=== PATIENT | male | born 1975 | race Caucasian/White ===

== ENCOUNTER 2017-01-31 11:26 | Emergency (ER) | payer OTHER ==
[~2017-01-31] VITALS: Wt 95.3 kg
[~2017-01-31 11:26] MED LIST: ACULAR 3ML 3 ML5 ML OPH; AMOXICILLIN500 M2 PO; AMOXICILLIN500 MG PO; BACTRIM DS 8001 TA1 PO; CEPHALEXIN500 M1 PO; CIPRO500 MG PO; CYCLOBENZAPRINE10 MG PO; DARVOCET N 1001 TAB PO; DEPAKOTE125 MG PO; DEPAKOTE250 MG PO; DOXYCYCLINE MO100 MG PO; FLEXERIL5 MG PO; FLOMAX0.4 MG PO; IBU PO; IBU800 MG PO; KEFLEX500 MG PO; LOMOTIL 0.025 M1 TA1 PO; MEDROL DOSEPAK4 MG PO; MELOXICAM15 MG PO; METHYLPRED-DP4 MG PO; MOTRIN800 MG PO; NO MED LIST; PERCOCET 325 MG1 TA2 PO; PHENERGAN W/DM120 ML PO; PREDNISONE10 MG PO; PREDNISONE20 M1 PO; PRILOSEC20 M1 PO; PROTONIX40 MG PO; PROZAC20 MG PO; PROZAC40 MG PO; TOBRADEX 0.1%-0.5 ML OPH; TOBREX OPHTH S2.5 ML OPH; TOPAMAX100 MG PO; TOPAMAX200 MG PO; TORADOL10 MG PO; TRAMADOL HCL50 MG PO; VIBRA-TABS100 MG PO; VICODIN 500 MG-1 TAB PO; VICODIN ES 7501 TAB PO; VITAMIN D32000 UNIT PO; VOLTAREN50 M1 PO; ZANTAC150 MG PO; ZITHROMAX Z PA250 MG PO; ZOFRAN ODT4 MG SL; ZYRTEC10 MG PO
[2017-01-31 12:42] LABS: BASO % 0.4 % (0.0-1.0); EOS # 0.1 10*3/uL (0.0-0.4); HEMATOCRIT 44.3 % (42.0-52.0); HEMOGLOBIN 15.9 g/dl (14.0-18.0); LYMPH # 1.3 10*3/uL (1.3-4.4); LYMPH % 11.2 % (27.0-41.0); MEAN CELL VOLUME 85.4 fl (80.0-94.0); MEAN CORPUSCULAR HGB 30.6 pg (27.0-31.0); MEAN CORPUSCULAR HGB CONC 35.9 g/dl (33.0-37.0); MONO # 0.7 10*3/uL (0.1-1.0); MONO % 6.2 % (3.0-9.0); NEUT # 9.1 10*3/uL (2.3-7.9); NEUT % 80.8 % (47.0-73.0); PLATELET COUNT AUTOMATED 252 10*3/uL (130-400); RED BLOOD COUNT 5.19 10*6/uL (4.50-5.90); RED CELL DISTRI WIDTH 11.9 % (0-14.5); WHITE BLOOD COUNT 11.3 10*3/uL (4.8-10.8)
[2017-01-31 12:57] LABS: BUN 11 mg/dl (7-24); CARBON DIOXIDE 24 mmol/L (21-32); CHLORIDE 104 mmol/L (98-107); EST GLOM FILT AFRICAN AMERICAN > 60 ml/min; GLUCOSE 157 mg/dL (65-99); POTASSIUM 4.5 mmol/L (3.5-5.1); SODIUM 138 mmol/L (136-145)
[2017-01-31 12:58] LABS: TROPONIN I < 0.015 ng/ml (<0.045)
[2017-01-31 14:05] LABS: BILIRUBIN NEGATIVE (NEGATIVE); BLOOD NEGATIVE (NEGATIVE); CLARITY CLEAR (CLEAR); COLOR YELLOW (YELLOW); GLUCOSE TRACE (NEGATIVE); KETONE NEGATIVE (NEGATIVE); LEUKO ESTERASE NEGATIVE (NEGATIVE); NITRITE NEGATIVE (NEGATIVE); PROTEIN TRACE (NEGATIVE); SPECIFIC GRAVITY 1.015 (1.005-1.030)
[2017-01-31 14:07] LABS: URINE AMPHETAMINES < 1000 (1000ng/ml); URINE BARBITURATES < 200 (200ng/ml); URINE COCAINE < 300 (300ng/ml)
[2017-01-31 14:32] LABS: URINE REFLEX COMMENT NO (NO)
[2017-01-31 15:30] VITALS: BP 120/65
[2017-01-31] MEDS ORDERED: ZITHROMAX250 MG PO (15:56)
== END 2017-01-31 15:56 | disposition home or self-care (01) ==
LOC: ED 11:26
PROVIDERS: Emergency Medicine
DX: J40 Bronchitis, not specified as acute or chronic (principal); G40.909 Epilepsy, unspecified, not intractable, without status epilepticus; Z88.6 Allergy status to analgesic agent; Z79.899 Other long term (current) drug therapy; Z88.5 Allergy status to narcotic agent

== ENCOUNTER 2017-03-13 14:59 | Emergency (ER) | payer OTHER ==
[~2017-03-13] VITALS: Ht 157.4 cm; Wt 88.5 kg
[~2017-03-13 14:59] MED LIST changes: +ZITHROMAX250 MG PO
[2017-03-13 15:06] VITALS: BP 136/80
[2017-03-13] MEDS ORDERED: CYCLOBENZAPRINE5 M3 PO (16:09)
[2017-03-13] MEDS ORDERED: PERCOCET 325 MG1 TA2 PO (16:09)
[2017-03-13] MEDS ORDERED: Motrin,Rufen800 MG PO (16:09)
== END 2017-03-13 16:15 | disposition home or self-care (01) ==
LOC: ED 14:59
DX: M54.16 Radiculopathy, lumbar region (principal); F17.200 Nicotine dependence, unspecified, uncomplicated; Z88.6 Allergy status to analgesic agent; Z79.899 Other long term (current) drug therapy

== ENCOUNTER 2017-03-14 16:11 | Emergency (ER) | payer OTHER ==
[~2017-03-14] VITALS: Ht 157.4 cm; Wt 88.5 kg
[~2017-03-14 16:11] MED LIST changes: +CYCLOBENZAPRINE5 M3 PO; +Motrin,Rufen800 MG PO
[2017-03-14 17:09] LABS: INTERNATIONAL NORM RATIO 0.9 (2.0-3.5); PROTHROMBIN TIME 9.5 SECONDS (9.0-12.4)
[2017-03-14 17:16] LABS: ALBUMIN 4.2 gm/dl (3.1-4.5); ALKALINE PHOSPHATASE 236 U/L (45-117); BILIRUBIN, TOTAL 0.7 mg/dl (0.2-1.0); BUN 29 mg/dl (7-24); CARBON DIOXIDE 27 mmol/L (21-32); CHLORIDE 82 mmol/L (98-107); CKMB 3.5 ng/ml (0.5-3.6); CPK 956 U/L (39-308); EST GLOM FILT AFRICAN AMERICAN 44 ml/min; LDH 201 U/L (87-241); MAGNESIUM 2.8 mg/dL (1.5-2.1); POTASSIUM 4.8 mmol/L (3.5-5.1); SGOT/AST 18 IU/L (3-35); SGPT/ALT 34 U/L (12-78); SODIUM 122 mmol/L (136-145); TOTAL PROTEIN 8.4 gm/dL (6.4-8.2)
[2017-03-14 17:18] LABS: BASO % 0.2 % (0.0-1.0); HEMATOCRIT 44.8 % (42.0-52.0); HEMOGLOBIN 16.8 g/dl (14.0-18.0); IG # 0.1 10*3/uL (0.0-0.1); LYMPH % 13.1 % (27.0-41.0); MEAN CELL VOLUME 81.6 fl (80.0-94.0); MEAN CORPUSCULAR HGB 30.6 pg (27.0-31.0); MEAN PLATELET VOLUME 10.5 fl (9.6-12.3); MONO % 6.4 % (3.0-9.0); NEUT # 12.3 10*3/uL (2.3-7.9); NEUT % 79.6 % (47.0-73.0); PLATELET COUNT AUTOMATED 304 10*3/uL (130-400); RED BLOOD COUNT 5.49 10*6/uL (4.50-5.90); RED CELL DISTRI WIDTH 11.6 % (0-14.5); WHITE BLOOD COUNT 15.5 10*3/uL (4.8-10.8)
[2017-03-14 17:19] LABS: GLUCOSE 1036 mg/dL (65-99); MEAN CORPUSCULAR HGB CONC 37.5 g/dl (33.0-37.0); TROPONIN I < 0.015 ng/ml (<0.045)
[2017-03-14 17:39] LABS: BILIRUBIN NEGATIVE (NEGATIVE); BLOOD NEGATIVE (NEGATIVE); CLARITY CLEAR (CLEAR); COLOR YELLOW (YELLOW); GLUCOSE 3+ (NEGATIVE); KETONE NEGATIVE (NEGATIVE); LEUKO ESTERASE NEGATIVE (NEGATIVE); NITRITE NEGATIVE (NEGATIVE); PROTEIN NEGATIVE (NEGATIVE); SPECIFIC GRAVITY <= 1.005 (1.005-1.030); UROBILINOGEN 0.2 E.U./dl (0.2-1.0)
[2017-03-14 17:45] LABS: BACTERIA TRACE; EPITHELIAL CELLS 0-2; RBC 0-2 rbc/hpf (0-2); URINE REFLEX COMMENT NO (NO); WBC 0-2 wbc/hpf (0-5)
[2017-03-14 17:48] LABS: URINE AMPHETAMINES < 1000 (1000ng/ml); URINE BARBITURATES < 200 (200ng/ml); URINE COCAINE < 300 (300ng/ml)
[2017-03-14 17:55] LABS: HEMOGLOBIN A1c 10.7 % (4.8-5.6)
[2017-03-14 21:26] LABS: POTASSIUM 4.5 mmol/L (3.5-5.1)
[2017-03-14 22:34] VITALS: BP 128/70
== END 2017-03-15 01:04 | disposition short-term general hospital (02) ==
LOC: ED 16:11
PROVIDERS: Physician Assistant
DX: E11.00 Type 2 diabetes mellitus with hyperosmolarity without nonketotic hyperglycemic-hyperosmolar coma (NKHHC) (principal); E11.65 Type 2 diabetes mellitus with hyperglycemia; R53.1 Weakness; R10.9 Unspecified abdominal pain; R11.0 Nausea; K21.9 Gastro-esophageal reflux disease without esophagitis; J45.909 Unspecified asthma, uncomplicated; F17.200 Nicotine dependence, unspecified, uncomplicated; G43.909 Migraine, unspecified, not intractable, without status migrainosus; Z88.6 Allergy status to analgesic agent; Z79.899 Other long term (current) drug therapy

== ENCOUNTER 2017-03-17 19:33 | Emergency (ER) | payer OTHER ==
[~2017-03-17] VITALS: Ht 157.4 cm; Wt 85.7 kg
[2017-03-17] MEDS ORDERED: NOVOLOG10 ML IV (19:41)
[2017-03-17 19:55] LABS: BASO % 0.3 % (0.0-1.0); EOS # 0.2 10*3/uL (0.0-0.4); EOS % 2.3 % (1.0-4.0); HEMATOCRIT 47.2 % (42.0-52.0); HEMOGLOBIN 17.1 g/dl (14.0-18.0); LYMPH # 4.2 10*3/uL (1.3-4.4); LYMPH % 45.9 % (27.0-41.0); MEAN CELL VOLUME 83.2 fl (80.0-94.0); MEAN CORPUSCULAR HGB 30.2 pg (27.0-31.0); MEAN CORPUSCULAR HGB CONC 36.2 g/dl (33.0-37.0); MEAN PLATELET VOLUME 9.9 fl (9.6-12.3); MONO # 0.5 10*3/uL (0.1-1.0); MONO % 5.4 % (3.0-9.0); NEUT # 4.2 10*3/uL (2.3-7.9); NEUT % 45.9 % (47.0-73.0); PLATELET COUNT AUTOMATED 238 10*3/uL (130-400); RED BLOOD COUNT 5.67 10*6/uL (4.50-5.90); WHITE BLOOD COUNT 9.1 10*3/uL (4.8-10.8)
[2017-03-17 20:07] LABS: BUN 10 mg/dl (7-24); CARBON DIOXIDE 23 mmol/L (21-32); CHLORIDE 105 mmol/L (98-107); EST GLOM FILT AFRICAN AMERICAN > 60 ml/min; GLUCOSE 258 mg/dL (65-99); POTASSIUM 4.5 mmol/L (3.5-5.1); SODIUM 138 mmol/L (136-145)
[2017-03-17 21:55] LABS: BILIRUBIN NEGATIVE (NEGATIVE); BLOOD NEGATIVE (NEGATIVE); CLARITY CLEAR (CLEAR); COLOR YELLOW (YELLOW); GLUCOSE 2+ (NEGATIVE); KETONE NEGATIVE (NEGATIVE); LEUKO ESTERASE NEGATIVE (NEGATIVE); NITRITE NEGATIVE (NEGATIVE); PROTEIN NEGATIVE (NEGATIVE)
[2017-03-17 22:03] LABS: RBC 0-2 rbc/hpf (0-2); URINE REFLEX COMMENT NO (NO)
[2017-03-17 22:18] LABS: ABG BASE EXCESS -5.8 mmol/L (-2.0-2.0); ABG CO2 CONTENT 17.6 mmol/L (23-27); ABG HCO3 16.7 mmol/l (22-26); ABG TEMPERATURE 98.3 F (98.0-99.0); ARTERIAL BLOOD GAS PH 7.411 (7.35-7.45); ARTERIAL BLOOD GAS PO2 98.4 mmHg (80-90)
== END 2017-03-17 22:34 | disposition home or self-care (01) ==
LOC: ED 19:33
PROVIDERS: Student in an Organized Health Care Education/Training Program
DX: E11.65 Type 2 diabetes mellitus with hyperglycemia (principal); F17.200 Nicotine dependence, unspecified, uncomplicated; Z79.4 Long term (current) use of insulin; Z88.6 Allergy status to analgesic agent

== ENCOUNTER 2017-10-16 17:51 | Emergency (ER) | payer OTHER ==
[~2017-10-16 17:51] MED LIST changes: +NOVOLOG10 ML IV
[2017-10-16 18:07] VITALS: BP 137/75
== END 2017-10-16 20:59 | disposition home or self-care (01) ==
LOC: ED 17:51
DX: S56.911A Strain of unspecified muscles, fascia and tendons at forearm level, right arm, initial encounter (principal); F17.200 Nicotine dependence, unspecified, uncomplicated; Z88.5 Allergy status to narcotic agent; Z88.8 Allergy status to other drugs, medicaments and biological substances; Z79.899 Other long term (current) drug therapy; X58.XXXA Exposure to other specified factors, initial encounter; Y93.89 Activity, other specified; Y92.89 Other specified places as the place of occurrence of the external cause; Y99.8 Other external cause status

== ENCOUNTER 2017-10-30 11:35 | Inpatient (IN) | payer OTHER ==
[~2017-10-30] VITALS: Ht 157.5 cm; Wt 93.0 kg
--- NOTE | ~2017-10-30 | PR ---
[place], [place] PROGRESS NOTE NAME: Sujit VERONIKA ROSADO [facility] #: [id number] UNIT #: [id number] ROOM: 416 DOCTOR: ELOINA NEVAREZ MD BIRTHDATE: [birth year] DOS: 10/31/2017 SUBJECTIVE: The patient was seen in the Cardiology Department just prior to his stress test today. He is a 42-year-old man with multiple risk factors for coronary artery disease, who presented to the hospital with chest wall pain. He has been treated overnight with tramadol and has improved dramatically. His chest is much less sore and he is breathing much more easily. PHYSICAL EXAMINATION: VITAL SIGNS: Today his pulse is 74 and regular, blood pressure is 118/71. He is afebrile. NECK: Supple. He has no jugular distention. Carotids are full. LUNGS: Respirations are unlabored. His chest is clear to auscultation and percussion. HEART: Has a regular rhythm with a soft S4 gallop. ABDOMEN: Benign. EXTREMITIES: Showed no edema. DIAGNOSTIC STUDIES: I reviewed his echocardiogram from 10/30/2017. It showed normal left ventricular size, wall motion and systolic function with normal left ventricular diastolic function. No significant abnormalities of chamber dimensions or valve function were noted and the study was felt to be essentially normal. IMPRESSION: 1. Chest wall pain, improved with nonsteroidal anti-inflammatory treatments. 2. Diabetes mellitus. 3. Tobacco abuse. PLAN: As noted above, the patient's symptoms are almost certainly musculoskeletal in origin, but he does have multiple risk factors for coronary artery disease. We will therefore proceed with a myocardial perfusion study today. Further recommendations will depend upon the results of the stress test. I thank the hospitalist physicians for asking our advice regarding the patient's care. [place], [place] PROGRESS NOTE NAME: HUMERA JRVERONIKA [facility] [id number] UNIT #: [id number] ROOM: 416 DOCTOR: ELOINA NEVAREZ MD BIRTHDATE: [birth year] ELOINA NEVAREZ MD CM:[facility]ANS [id number] ELOINA NEVAREZ MD 10/31/17 1533 interface
[2017-10-30 11:45] VITALS: BP 138/71
[2017-10-30 11:59] LABS: BASO # 0.1 10*3/uL (0.0-0.1); BASO % 0.8 % (0.0-1.0); EOS # 0.3 10*3/uL (0.0-0.4); EOS % 3.8 % (1.0-4.0); HEMATOCRIT 45.4 % (42.0-52.0); HEMOGLOBIN 16.2 g/dl (14.0-18.0); LYMPH # 2.8 10*3/uL (1.3-4.4); LYMPH % 38.4 % (27.0-41.0); MEAN CELL VOLUME 85.5 fl (80.0-94.0); MEAN CORPUSCULAR HGB 30.5 pg (27.0-31.0); MEAN CORPUSCULAR HGB CONC 35.7 g/dl (33.0-37.0); MEAN PLATELET VOLUME 9.2 fl (9.6-12.3); MONO # 0.4 10*3/uL (0.1-1.0); MONO % 5.6 % (3.0-9.0); NEUT # 3.7 10*3/uL (2.3-7.9); NEUT % 51.3 % (47.0-73.0); PLATELET COUNT AUTOMATED 197 10*3/uL (130-400); RED BLOOD COUNT 5.31 10*6/uL (4.50-5.90); RED CELL DISTRI WIDTH 12.5 % (0-14.5); WHITE BLOOD COUNT 7.3 10*3/uL (4.8-10.8)
[2017-10-30 12:08] LABS: ACT PARTIAL THROMBO TIME 28.2 SECONDS (20.8-31.5); INTERNATIONAL NORM RATIO 0.9 (2.0-3.5)
[2017-10-30 12:17] LABS: ALBUMIN 3.9 gm/dl (3.1-4.5); ALKALINE PHOSPHATASE 102 U/L (45-117); BUN 11 mg/dl (7-24); CHLORIDE 106 mmol/L (98-107); CREATININE 1.23 mg/dL (0.70-1.30); POTASSIUM 4.1 mmol/L (3.5-5.1); SGOT/AST 23 IU/L (3-35); SGPT/ALT 34 U/L (12-78); SODIUM 136 mmol/L (136-145); TOTAL PROTEIN 7.8 gm/dL (6.4-8.2); TROPONIN I < 0.015 ng/ml (<0.045)
--- NOTE | 2017-10-30 13:00 | NUR ---
PT REMAINS VERY SLEEPY, UNWILLING TO KEEP HIS EYES OPEN. STATES HE IS UNABLE TO EVEN PULL HIMSELF UPWARDS IN THE BED. MADE AWARE. PT IS FULL ORIENTED.
[2017-10-30 13:34] VITALS: BP 121/74
[2017-10-30 13:37] VITALS: BP 122/65
[2017-10-30 13:50] VITALS: BP 122/65
--- NOTE | 2017-10-30 14:04 | NUR ---
A 42, admitted to , under the services of SHANTEL Benson DO with a diagnosis of CHEST PAIN. Chief complaint is CHEST PAIN. Patient arrivE d via bed from ER. Monitor applied. Initial assessment completed. Vital signs taken and recorded. SHANTEL BENSON DO notified of admission to the unit. Orders received. See assessment for past medical history, medications and allergies. Patient and/or family oriented to unit. [facility] visitation policy reviewed. Clothing/patient valuable form completed. KYRIE LOU
[2017-10-30] MEDS ORDERED: METFORMIN500 MG PO (15:08)
[2017-10-30] MEDS ORDERED: LIPITOR10 MG PO (15:08)
--- NOTE | 2017-10-30 15:19 | NUR ---
OFFICE STAFF WAS NOTIFIED OF DR. CHRISTENSEN CONSULT. RESPONSE OF NOTIFICATION WAS WILL LET HIM KNOW. KYRIE LOU
[2017-10-30 16:00] VITALS: BP 101/55
--- NOTE | 2017-10-30 17:10 | NUR ---
PT C/O MIDSTERNAL CHEST PAIN OF 06/21. OFFERED TYLENOL AND PATIENT STATED THAT IT DIDN'T WORK FOR HIM AT HOME. NOTIFIED DR PAYNE AND SHE STATED THAT SHE WILL PUT SOMETHING IN.
--- NOTE | 2017-10-30 17:43 | NUR ---
ONE TIME DOSE OF TORADOL GIVEN PER PTS REQUEST FOR MIDSTERNAL PAIN RATED 8/10. WILL EVALUATE EFFECTIVENESS.
--- NOTE | 2017-10-30 17:53 | NUR ---
NOTIFIED DR. PAYNE THAT PATIENT REPORTS TAKING DEPAKOTE AND MOBIC DAILY. UPON SPEAKING WITH [facility] PT HAS NOT HAD EITHER MEDICATION FILLED SINCE JUNE 2017. PT ALSO REPORTED HAVING SEIZURE [address] PAYNE STATED THAT SHE WOULD LOOK INTO THE ISSUE.
--- NOTE | 2017-10-30 18:29 | NUR ---
PAIN MEDICATIN EFFECTIVE. PT DOES NOT HAVE ANY COMPLAINTS AT THIS TIME.
[2017-10-30 20:00] VITALS: BP 108/58
--- NOTE | 2017-10-30 20:22 | NUR ---
IN TO SEE PT, PT ALERT ORIENTED AND PLEASANT. NO COMPLAINTS AT THIS TIME. ASSESSMENT COMPLETE, NO NEW ABNORMALITIES. NO C/O PAIN OR SOB. HRR, 90 ON CM. RESPIRATIONS EASY AND UNLABORED. LUNGS CLEAR/DIMINISHED. NORMOACTIVE BSX4. ENCOURGAED USE OF CALL LIGHT FOR QUESTIONS/CONCERNS.
--- NOTE | 2017-10-30 22:38 | NUR ---
HS MEDICATIONS TAKEN WITH EASE. NO S/S OF PAIN OR DISTRESS. NO COMPLAINTS VOICED. RESPIRATIONS EASY AND UNLABORED.
[2017-10-31] VITALS: BP 110/58
--- NOTE | 2017-10-31 00:20 | NUR ---
PT COOPERATIVE DURING ASSESSMENT, LUNGS CLEAR, SKIN WARM/DRY, RESP EASY. PT AWARE OF NPO STATUS FOR STRESS TEST IN THE AM. NO C/O AT THIS TIME.
[2017-10-31 06:14] LABS: BASO # 0.1 10*3/uL (0.0-0.1); BASO % 0.7 % (0.0-1.0); EOS # 0.3 10*3/uL (0.0-0.4); EOS % 3.4 % (1.0-4.0); HEMATOCRIT 41.5 % (42.0-52.0); HEMOGLOBIN 14.4 g/dl (14.0-18.0); LYMPH # 3.2 10*3/uL (1.3-4.4); LYMPH % 35.9 % (27.0-41.0); MEAN CELL VOLUME 87.9 fl (80.0-94.0); MEAN CORPUSCULAR HGB 30.5 pg (27.0-31.0); MEAN CORPUSCULAR HGB CONC 34.7 g/dl (33.0-37.0); MEAN PLATELET VOLUME 9.5 fl (9.6-12.3); MONO # 0.7 10*3/uL (0.1-1.0); MONO % 7.5 % (3.0-9.0); NEUT # 4.7 10*3/uL (2.3-7.9); NEUT % 52.3 % (47.0-73.0); PLATELET COUNT AUTOMATED 225 10*3/uL (130-400); RED BLOOD COUNT 4.72 10*6/uL (4.50-5.90); RED CELL DISTRI WIDTH 12.5 % (0-14.5); WHITE BLOOD COUNT 8.9 10*3/uL (4.8-10.8)
[2017-10-31 06:45] LABS: BUN 17 mg/dl (7-24); CHLORIDE 107 mmol/L (98-107); CHOLESTEROL 202 mg/dL (<200); CREATININE 1.43 mg/dL (0.70-1.30); PHOSPHOROUS 2.8 mg/dL (2.5-4.9); POTASSIUM 4.5 mmol/L (3.5-5.1); SODIUM 140 mmol/L (136-145); TRIGLYCERIDES 302 mg/dl (<150); VLDL CHOLESTEROL 60 mg/dL (6-40)
[2017-10-31 06:53] LABS: HDL CHOLESTEROL 34 mg/dl (40-60); LDL CHOLESTEROL 108 mg/dL (9-159)
[2017-10-31 08:00] VITALS: BP 90/54
--- NOTE | 2017-10-31 08:00 | NUR ---
Manager Process in to talk to patient. Patient states lives at HOME with HIS FIANCE. There are 4 steps in the home. Physician: JUSTIN HUDDLESTON Pharmacy: [facility] Home health services: NONE Patient's level of ADLs: INDEPENDENT Patient has working utilities: YES DME: NONE Follow-up physician's appointment after d/c: WILL BE MADE PRIOR TO DC Does patient want to access PORTAL?: Discharge plan HOME. BARRY ANDRADE
--- NOTE | 2017-10-31 08:00 | NUR ---
IN BED ALER AND ORIENTED X3, DENIES CHEST PAIN AT THIS TIME. NO S/S OF DISTRESS. LABS REVIEWED. WILL CONT TO MONITOR. CALL LIGHT IN REACH. SEE ASSESS
[2017-10-31 08:26] LABS: VITAMIN D, 25-HYDROXY 20.6 ng/mL (30-100)
--- NOTE | 2017-10-31 10:41 | NUR ---
NICOTINE PATCH APPLIED TO L UPPER ARM.
--- NOTE | 2017-10-31 11:04 | NUR ---
ONE TIME DOSE OR TORADOL GIVEN FOR HEADACHE RATED 10/10. WILL EVALUATE FOR EFFECTIVENESS.
[2017-10-31 12:00] VITALS: BP 118/71
--- NOTE | 2017-10-31 12:00 | NUR ---
PT LEFT FLOOR TO GO TO CARDIAC REHAB FOR STRESS TEST.
--- NOTE | 2017-10-31 13:20 | NUR ---
INFORMED CONSENT SIGNED FOR LEXISCAN WITH DR. NEVAREZ. RESTING EKG NSR WITH T WAVE IONVERSIONS LEAD II, V5-6. HR 72 AND BP OF 126/88. BREATH SOUNDS CLEAR, WITH A POX OF 97% VIA RA. COMPLETED ONE MINUTE OF LEXISCAN PROTOCOL RECEIVING LEXISCAN 0.4 MG OVER 10 SECONDS. DEVELOPED BREATHLESSNESS AND NAUSEA THAT WAS RELIEVED IN RECOVERY. HAD A PEAK HR OF 107, WITH A BP OF 162/100. LAST RECOVERY HR OF 107, WITH A BP OF 122/80. AWAITING NUCLEAR IMAGING IN STABLE CONDITION.
--- NOTE | 2017-10-31 13:37 | NUR ---
PT HAS RETURNED TO FLOOR FOLLOWING SURGERY IN STABLE CONDITION.
--- NOTE | 2017-10-31 14:40 | NUR ---
RETURNED FROM CARDIAC REHAB AT THIS TIME.
[2017-10-31 16:00] VITALS: BP 135/72
--- NOTE | 2017-10-31 18:33 | NUR ---
PT DISCHARGED AT THIS TIME. VERBALIZED UNDERSTANDING OF DISCHARGE INSTRUCTIONZS. IV REMOVED AND PRESSURE DRESSING APPLIED. HEART MONITOR RETURNED TO FLOOR.
== END 2017-10-31 18:33 | disposition home or self-care (01) | DRG 392 ==
LOC: ED 11:35 → EDHOLD 13:14 → 4E 13:14
PROVIDERS: Emergency Medicine; Internal Medicine Nephrology; ADMIT Internal Medicine
PROC: 4A02XM4 Measurement of Cardiac Total Activity, External Approach (ICD-10-PCS; principal; 2017-10-31)
PROC: 3E073KZ Introduction of Other Diagnostic Substance into Coronary Artery, Percutaneous Approach (ICD-10-PCS; 2017-10-31)
DX: K21.9 Gastro-esophageal reflux disease without esophagitis (principal); E11.649 Type 2 diabetes mellitus with hypoglycemia without coma; R07.89 Other chest pain; E66.01 Morbid (severe) obesity due to excess calories; J45.909 Unspecified asthma, uncomplicated; E11.65 Type 2 diabetes mellitus with hyperglycemia; M54.16 Radiculopathy, lumbar region; G40.909 Epilepsy, unspecified, not intractable, without status epilepticus; Z88.6 Allergy status to analgesic agent; Z88.8 Allergy status to other drugs, medicaments and biological substances; Z79.4 Long term (current) use of insulin; Z87.442 Personal history of urinary calculi; Z79.899 Other long term (current) drug therapy; Z82.49 Family history of ischemic heart disease and other diseases of the circulatory system; Z82.3 Family history of stroke; Z84.89 Family history of other specified conditions; Z80.0 Family history of malignant neoplasm of digestive organs; Z79.84 Long term (current) use of oral hypoglycemic drugs; Z71.6 Tobacco abuse counseling; Z68.37 Body mass index [BMI] 37.0-37.9, adult; Z72.0 Tobacco use

== ENCOUNTER 2019-12-17 05:01 | Emergency (ER) | payer OTHER ==
[~2019-12-17] VITALS: Ht 157.4 cm; Wt 90.7 kg
[~2019-12-17 05:01] MED LIST changes: +LIPITOR10 MG PO; +METFORMIN500 MG PO
[2019-12-17 05:21] LABS: BASO # 0.1 10*3/uL (0.0-0.1); BASO % 0.5 % (0.0-1.0); EOS # 0.2 10*3/uL (0.0-0.4); EOS % 1.7 % (1.0-4.0); HEMATOCRIT 45.8 % (42.0-52.0); HEMOGLOBIN 16.2 g/dl (14.0-18.0); LYMPH # 2.7 10*3/uL (1.3-4.4); LYMPH % 23.7 % (27.0-41.0); MEAN CELL VOLUME 85.9 fl (80.0-94.0); MEAN CORPUSCULAR HGB 30.4 pg (27.0-31.0); MEAN CORPUSCULAR HGB CONC 35.4 g/dl (33.0-37.0); MEAN PLATELET VOLUME 9.5 fl (9.6-12.3); MONO # 0.9 10*3/uL (0.1-1.0); MONO % 8.2 % (3.0-9.0); NEUT # 7.4 10*3/uL (2.3-7.9); NEUT % 65.5 % (47.0-73.0); PLATELET COUNT AUTOMATED 285 10*3/uL (130-400); RED BLOOD COUNT 5.33 10*6/uL (4.50-5.90); RED CELL DISTRI WIDTH 12.3 % (0-14.5); WHITE BLOOD COUNT 11.3 10*3/uL (4.8-10.8)
[2019-12-17 05:31] LABS: ACT PARTIAL THROMBO TIME 23.9 SECONDS (20.0-32.1); INTERNATIONAL NORM RATIO 0.9 (2.0-3.5)
[2019-12-17] MEDS ORDERED: PROVENTIL HFA6.7 GM IH (05:34)
[2019-12-17] MEDS ORDERED: ASPIRIN CHEWABL81 MG PO (05:35)
[2019-12-17] MEDS ORDERED: PLAVIX75 M1 PO (05:35)
[2019-12-17 05:37] LABS: ALBUMIN 3.7 gm/dl (3.1-4.5); ALKALINE PHOSPHATASE 105 U/L (45-117); BUN 13 mg/dl (7-24); CHLORIDE 107 mmol/L (98-107); POTASSIUM 4.2 mmol/L (3.5-5.1); SGOT/AST 13 IU/L (3-35); SGPT/ALT 31 U/L (12-78); SODIUM 139 mmol/L (136-145); TOTAL PROTEIN 7.9 gm/dL (6.4-8.2)
[2019-12-17 05:50] LABS: TROPONIN I < 0.015 ng/ml (<0.045)
[2019-12-17 06:35] VITALS: BP 127/83
== END 2019-12-17 06:55 | disposition short-term general hospital (02) ==
LOC: ED 05:01
PROVIDERS: Emergency Medicine
DX: I63.9 Cerebral infarction, unspecified (principal); J45.909 Unspecified asthma, uncomplicated; E11.9 Type 2 diabetes mellitus without complications; G40.909 Epilepsy, unspecified, not intractable, without status epilepticus; E78.1 Pure hyperglyceridemia; E66.01 Morbid (severe) obesity due to excess calories; I25.10 Atherosclerotic heart disease of native coronary artery without angina pectoris; I25.2 Old myocardial infarction; F17.200 Nicotine dependence, unspecified, uncomplicated; Z98.61 Coronary angioplasty status; Z88.8 Allergy status to other drugs, medicaments and biological substances; Z88.6 Allergy status to analgesic agent; Z79.899 Other long term (current) drug therapy; Z79.4 Long term (current) use of insulin; Z79.82 Long term (current) use of aspirin

== ENCOUNTER 2020-03-28 20:25 | Emergency (ER) | payer OTHER ==
[~2020-03-28] VITALS: Ht 157.4 cm; Wt 82.1 kg
[~2020-03-28 20:25] MED LIST changes: +ASPIRIN CHEWABL81 MG PO; +PLAVIX75 M1 PO; +PROVENTIL HFA6.7 GM IH
[2020-03-28 20:33] VITALS: BP 151/90
[2020-03-28 21:03] LABS: BASO # 0.1 10*3/uL (0.0-0.1); BASO % 0.7 % (0.0-1.0); EOS # 0.2 10*3/uL (0.0-0.4); EOS % 2.2 % (1.0-4.0); HEMATOCRIT 46.5 % (42.0-52.0); LYMPH # 1.9 10*3/uL (1.3-4.4); LYMPH % 27.6 % (27.0-41.0); MEAN CELL VOLUME 82.4 fl (80.0-94.0); MEAN CORPUSCULAR HGB 30.5 pg (27.0-31.0); MEAN PLATELET VOLUME 9.9 fl (9.6-12.3); MONO # 0.3 10*3/uL (0.1-1.0); NEUT # 4.4 10*3/uL (2.3-7.9); NEUT % 64.1 % (47.0-73.0); PLATELET COUNT AUTOMATED 236 10*3/uL (130-400); RED BLOOD COUNT 5.64 10*6/uL (4.50-5.90); RED CELL DISTRI WIDTH 11.9 % (0-14.5); WHITE BLOOD COUNT 6.8 10*3/uL (4.8-10.8)
[2020-03-28 21:04] LABS: BACTERIA TRACE; BILIRUBIN NEGATIVE (NEGATIVE); BLOOD NEGATIVE (NEGATIVE); CLARITY CLEAR (CLEAR); COLOR YELLOW (YELLOW); GLUCOSE 3+ (NEGATIVE); KETONE NEGATIVE (NEGATIVE); LEUKO ESTERASE NEGATIVE (NEGATIVE); NITRITE NEGATIVE (NEGATIVE); SPECIFIC GRAVITY 1.005 (1.005-1.030); UROBILINOGEN 0.2 E.U./dl (0.2-1.0)
[2020-03-28 21:20] LABS: ALBUMIN 3.5 gm/dl (3.1-4.5); ALKALINE PHOSPHATASE 235 U/L (45-117); BUN 14 mg/dl (7-24); CHLORIDE 96 mmol/L (98-107); CREATININE 1.41 mg/dL (0.70-1.30); POTASSIUM 4.3 mmol/L (3.5-5.1); SODIUM 126 mmol/L (136-145); TOTAL PROTEIN 7.3 gm/dL (6.4-8.2)
[2020-03-28 21:22] LABS: TROPONIN I < 0.015 ng/ml (<0.045)
[2020-03-28 21:40] LABS: SGOT/AST 18 IU/L (3-35)
[2020-03-28 21:49] LABS: SGPT/ALT 28 U/L (12-78)
[2020-03-28 21:58] LABS: INTERNATIONAL NORM RATIO 0.8 (2.0-3.5)
== END 2020-03-28 22:00 | disposition left against medical advice (07) ==
LOC: ED 20:25
PROVIDERS: Physician Assistant
DX: E10.10 Type 1 diabetes mellitus with ketoacidosis without coma (principal); E87.1 Hypo-osmolality and hyponatremia; R56.9 Unspecified convulsions; K21.9 Gastro-esophageal reflux disease without esophagitis; G43.909 Migraine, unspecified, not intractable, without status migrainosus; E78.5 Hyperlipidemia, unspecified; J45.909 Unspecified asthma, uncomplicated; F17.200 Nicotine dependence, unspecified, uncomplicated; Z88.8 Allergy status to other drugs, medicaments and biological substances; Z79.4 Long term (current) use of insulin; Z79.899 Other long term (current) drug therapy

== ENCOUNTER → 2020-05-27 | Outpatient (CLI) | payer OTHER | END | disposition home or self-care (01) | LOC: RAD 09:38 | DX: I15.2 Hypertension secondary to endocrine disorders (principal); I20.8 Other forms of angina pectoris ==

== ENCOUNTER 2021-04-02 16:44 | Emergency (ER) | payer OTHER ==
[~2021-04-02] VITALS: Ht 157.4 cm; Wt 77.1 kg
[2021-04-02 16:47] VITALS: BP 116/75
[2021-04-02] MEDS ORDERED: MEDROL DOSEPAK4 MG PO ×3 (18:56→19:06)
== END 2021-04-02 18:52 | disposition home or self-care (01) ==
LOC: ED 16:44
DX: M70.21 Olecranon bursitis, right elbow (principal); E11.9 Type 2 diabetes mellitus without complications; F17.200 Nicotine dependence, unspecified, uncomplicated; Z88.8 Allergy status to other drugs, medicaments and biological substances; Z88.6 Allergy status to analgesic agent; Z79.899 Other long term (current) drug therapy; Z79.4 Long term (current) use of insulin; Z79.82 Long term (current) use of aspirin; Z98.890 Other specified postprocedural states; Y93.89 Activity, other specified

== ENCOUNTER 2021-08-08 16:43 | Emergency (ER) | payer OTHER ==
[~2021-08-08] VITALS: Wt 68.0 kg
[2021-08-08 16:59] VITALS: BP 137/80
== END 2021-08-08 20:50 | disposition home or self-care (01) ==
LOC: ED 16:43
DX: S62.366A Nondisplaced fracture of neck of fifth metacarpal bone, right hand, initial encounter for closed fracture (principal); S62.646A Nondisplaced fracture of proximal phalanx of right little finger, initial encounter for closed fracture; F17.200 Nicotine dependence, unspecified, uncomplicated; Z88.6 Allergy status to analgesic agent; Z79.899 Other long term (current) drug therapy; Z79.82 Long term (current) use of aspirin; W23.0XXA Caught, crushed, jammed, or pinched between moving objects, initial encounter; Y93.89 Activity, other specified; Y92.89 Other specified places as the place of occurrence of the external cause; Y99.8 Other external cause status

== ENCOUNTER → 2021-08-24 | Outpatient (CLI) | payer OTHER | END | disposition home or self-care (01) | LOC: ORTHO 02:30 | PROVIDERS: ATTEND Orthopaedic Surgery | DX: S62.366A Nondisplaced fracture of neck of fifth metacarpal bone, right hand, initial encounter for closed fracture (principal); X58.XXXA Exposure to other specified factors, initial encounter; Y93.89 Activity, other specified; Y92.89 Other specified places as the place of occurrence of the external cause; Y99.8 Other external cause status ==

== ENCOUNTER → 2021-09-01 | Outpatient (CLI) | payer OTHER | END | disposition home or self-care (01) | LOC: ORTHO 00:46 | PROVIDERS: ATTEND Orthopaedic Surgery | DX: S62.366D Nondisplaced fracture of neck of fifth metacarpal bone, right hand, subsequent encounter for fracture with routine healing (principal); S62.616D Displaced fracture of proximal phalanx of right little finger, subsequent encounter for fracture with routine healing; X58.XXXD Exposure to other specified factors, subsequent encounter ==

== ENCOUNTER → 2021-09-09 | Outpatient (CLI) | payer OTHER | END | disposition home or self-care (01) | LOC: ORTHO 00:20 | PROVIDERS: ATTEND Orthopaedic Surgery | DX: S62.646D Nondisplaced fracture of proximal phalanx of right little finger, subsequent encounter for fracture with routine healing (principal); X58.XXXD Exposure to other specified factors, subsequent encounter ==

== ENCOUNTER 2024-05-02 09:14 | Emergency (ER) | payer MEDICAID ==
[~2024-05-02] VITALS: Ht 157.4 cm; Wt 86.2 kg
[2024-05-02 10:14] VITALS: BP 114/68
[2024-05-02] MEDS ORDERED: TEGRETOL200 MG PO (10:16)
[2024-05-02] MEDS ORDERED: GLUMETZA1000 MG PO (10:17)
[2024-05-02] MEDS ORDERED: PROZAC40 M1 PO (10:17)
[2024-05-02] MEDS ORDERED: ADVAIR 250/501 EA INH (10:20)
[2024-05-02] MEDS ORDERED: Ondansetron Hydrochloride 4 MG/2 ML VIAL IV ONE (10:35)
[2024-05-02] MEDS ORDERED: SODIUM CHLORIDE 0.9% 1,000 ML IV ONE ×2 (10:35)
[2024-05-02 11:12] LABS: BASO # 0.1 10*3/uL (0.0-0.1); BASO % 0.9 % (0.0-1.0); EOS # 0.3 10*3/uL (0.0-0.4); EOS % 4.5 % (1.0-4.0); HEMATOCRIT 42.7 % (42.0-52.0); LYMPH # 2.3 10*3/uL (1.3-4.4); LYMPH % 39.1 % (27.0-41.0); MEAN CELL VOLUME 88.4 fl (80.0-94.0); MEAN CORPUSCULAR HGB 30.6 pg (27.0-31.0); MEAN CORPUSCULAR HGB CONC 34.7 g/dl (33.0-37.0); MEAN PLATELET VOLUME 9.4 fl (9.6-12.3); MONO # 0.4 10*3/uL (0.1-1.0); MONO % 7.6 % (3.0-9.0); NEUT # 2.8 10*3/uL (2.3-7.9); NEUT % 47.4 % (47.0-73.0); PLATELET COUNT AUTOMATED 293 10*3/uL (130-400); RED BLOOD COUNT 4.83 10*6/uL (4.50-5.90); RED CELL DISTRI WIDTH 12.7 % (0-14.5); WHITE BLOOD COUNT 5.8 10*3/uL (4.8-10.8)
[2024-05-02 11:39] LABS: BUN 11 mg/dl (9-23); CHLORIDE 102 mmol/L (98-107); POTASSIUM 4.5 mmol/L (3.4-5.1)
[2024-05-02] MEDS ORDERED: INSULIN REGULAR, HUMAN 1 UNIT/0.01 ML IV ONE (12:05)
== END 2024-05-02 14:15 | disposition left against medical advice (07) ==
LOC: ED 09:14
PROVIDERS: Emergency Medicine
DX: R73.9 Hyperglycemia, unspecified (principal); R11.0 Nausea; F17.200 Nicotine dependence, unspecified, uncomplicated; Z88.8 Allergy status to other drugs, medicaments and biological substances; Z98.890 Other specified postprocedural states; Z53.29 Procedure and treatment not carried out because of patient's decision for other reasons

== ENCOUNTER 2024-07-06 19:26 | Emergency (ER) | payer MEDICAID ==
[~2024-07-06] VITALS: Ht 157.4 cm; Wt 80.3 kg
[~2024-07-06 19:26] MED LIST changes: +ADVAIR 250/501 EA INH; +GLUMETZA1000 MG PO; -NOVOLOG10 ML IV; +NOVOLOG10 ML SC; +PROZAC40 M1 PO; +TEGRETOL200 MG PO
[2024-07-06 19:35] VITALS: BP 138/95
[2024-07-06] MEDS ORDERED: TRULICITY0.75 MG/0. SC (19:39)
[2024-07-06] MEDS ORDERED: DIVALPROEX SOD500 M1 PO (19:39)
[2024-07-06] MEDS ORDERED: LANTUS SOL100 UNIT/1 SC (19:40)
[2024-07-06] MEDS ORDERED: CARBAMAZEPINE200 MG PO (19:40)
[2024-07-06 20:15] LABS: BILIRUBIN Negative (Negative); BLOOD Negative (Negative); CLARITY Clear (Clear); COLOR Yellow (Yellow); GLUCOSE 3+ (Negative); KETONE Trace (Negative); LEUKO ESTERASE Negative (Negative); NITRITE Negative (Negative); PH 5.5 (4.5-8.0); SPECIFIC GRAVITY >= 1.030 (1.001-1.030)
[2024-07-06 20:22] LABS: URINE AMPHETAMINES Negative (1000ng/ml); URINE BARBITURATES Negative (200ng/ml); URINE BENZODIAZEPINES Negative (200ng/ml); URINE CANNABINOIDS (THC) Negative (50ng/ml); URINE COCAINE Negative (300ng/ml); URINE METHADONE Negative (300ng/ml); URINE OPIATES Negative (300ng/ml); URINE PHENCYCLIDINE Negative (25ng/ml)
[2024-07-06 20:29] LABS: BASO # 0.1 10*3/uL (0.0-0.1); BASO % 0.9 % (0.0-1.0); EOS # 0.2 10*3/uL (0.0-0.4); EOS % 3.8 % (1.0-4.0); HEMATOCRIT 45.5 % (42.0-52.0); LYMPH # 2.5 10*3/uL (1.3-4.4); LYMPH % 42.5 % (27.0-41.0); MEAN CORPUSCULAR HGB 30.9 pg (27.0-31.0); MEAN CORPUSCULAR HGB CONC 34.7 g/dl (33.0-37.0); MEAN PLATELET VOLUME 9.6 fl (9.6-12.3); MONO # 0.4 10*3/uL (0.1-1.0); MONO % 6.9 % (3.0-9.0); NEUT # 2.7 10*3/uL (2.3-7.9); NEUT % 45.7 % (47.0-73.0); PLATELET COUNT AUTOMATED 208 10*3/uL (130-400); RED BLOOD COUNT 5.11 10*6/uL (4.50-5.90); RED CELL DISTRI WIDTH 12.4 % (0-14.5); WHITE BLOOD COUNT 5.8 10*3/uL (4.8-10.8)
[2024-07-06 20:34] LABS: WBC 0-2 wbc/hpf (0-5)
[2024-07-06 20:35] LABS: BACTERIA TRACE; EPITHELIAL CELLS 0-2
[2024-07-06 20:39] LABS: ACT PARTIAL THROMBO TIME 28.7 SECONDS (20.0-32.1)
[2024-07-06 21:21] LABS: CARBAMAZEPINE (TEGRETOL) TOTAL 4.9 ug/ml (4-12); VALPROIC ACID (DEPAKENE) 33.6 ug/ml (50-100)
[2024-07-06 21:23] LABS: ALKALINE PHOSPHATASE 139 U/L (46-116); CHLORIDE 102 mmol/L (98-107); POTASSIUM 3.9 mmol/L (3.4-5.1); SGPT/ALT 17 U/L (5-49); TOTAL PROTEIN 7.1 gm/dL (6.0-8.0)
[2024-07-06 21:25] LABS: BUN < 5 mg/dl (9-23); ETHYL ALCOHOL < 3.0 mg/dl (<3)
[2024-07-06] MEDS ORDERED: DEPAKOTE250 MG PO (21:39)
== END 2024-07-06 21:57 | disposition home or self-care (01) ==
LOC: ED 19:26
PROVIDERS: Internal Medicine
DX: R56.9 Unspecified convulsions (principal); J45.909 Unspecified asthma, uncomplicated; K21.9 Gastro-esophageal reflux disease without esophagitis; G43.909 Migraine, unspecified, not intractable, without status migrainosus; Z87.442 Personal history of urinary calculi; F17.200 Nicotine dependence, unspecified, uncomplicated; Z88.5 Allergy status to narcotic agent; Z88.8 Allergy status to other drugs, medicaments and biological substances; Z98.890 Other specified postprocedural states

== ENCOUNTER 2024-08-03 20:35 | Emergency (ER) | payer MEDICAID ==
[~2024-08-03 20:35] MED LIST changes: +CARBAMAZEPINE200 MG PO; +DIVALPROEX SOD500 M1 PO; +LANTUS SOL100 UNIT/1 SC; +TRULICITY0.75 MG/0. SC
[2024-08-03 21:11] LABS: BASO # 0.1 10*3/uL (0.0-0.1); BASO % 0.3 % (0.0-1.0); EOS # 0.2 10*3/uL (0.0-0.4); EOS % 1.2 % (1.0-4.0); HEMATOCRIT 48.9 % (42.0-52.0); LYMPH # 1.5 10*3/uL (1.3-4.4); LYMPH % 9.9 % (27.0-41.0); MEAN CELL VOLUME 87.5 fl (80.0-94.0); MEAN CORPUSCULAR HGB 29.9 pg (27.0-31.0); MEAN CORPUSCULAR HGB CONC 34.2 g/dl (33.0-37.0); MEAN PLATELET VOLUME 9.2 fl (9.6-12.3); MONO % 6.7 % (3.0-9.0); NEUT # 12.5 10*3/uL (2.3-7.9); NEUT % 81.5 % (47.0-73.0); PLATELET COUNT AUTOMATED 284 10*3/uL (130-400); RED BLOOD COUNT 5.59 10*6/uL (4.50-5.90); RED CELL DISTRI WIDTH 12.1 % (0-14.5); WHITE BLOOD COUNT 15.4 10*3/uL (4.8-10.8)
[2024-08-03 21:22] LABS: ACT PARTIAL THROMBO TIME 33.3 SECONDS (20.0-32.1)
[2024-08-03 21:34] LABS: ALKALINE PHOSPHATASE 111 U/L (46-116); BUN 13 mg/dl (9-23); CHLORIDE 107 mmol/L (98-107); CPK 133 U/L (34-171); POTASSIUM 4.1 mmol/L (3.4-5.1); SGPT/ALT 12 U/L (5-49); VALPROIC ACID (DEPAKENE) 65.5 ug/ml (50-100)
[2024-08-03] MEDS ORDERED: IOHEXOL 300 MG/ML 100 ML VIAL IV ONE (22:00)
[2024-08-03] MEDS ORDERED: IOHEXOL 300 MG/ML 100 ML VIAL ONE (22:13)
[2024-08-03 22:20] LABS: BILIRUBIN Negative (Negative); BLOOD Negative (Negative); CLARITY Clear (Clear); COLOR Yellow (Yellow); GLUCOSE Negative (Negative); KETONE 2+ (Negative); LEUKO ESTERASE Trace (Negative); NITRITE Negative (Negative); PH 5.5 (4.5-8.0); SPECIFIC GRAVITY >= 1.030 (1.001-1.030)
[2024-08-03 22:26] LABS: BACTERIA 1+; MUCOUS 1+; RBC 0-2 rbc/hpf (0-2)
[2024-08-03 22:27] LABS: URINE AMPHETAMINES Negative (1000ng/ml); URINE BARBITURATES Negative (200ng/ml); URINE BENZODIAZEPINES Negative (200ng/ml); URINE CANNABINOIDS (THC) Negative (50ng/ml); URINE COCAINE Negative (300ng/ml); URINE METHADONE Negative (300ng/ml); URINE OPIATES Negative (300ng/ml); URINE PHENCYCLIDINE Negative (25ng/ml)
[2024-08-03] MEDS ORDERED: SODIUM CHLORIDE 0.9% 1,000 ML IV ONE (23:00)
[2024-08-04 03:55] VITALS: BP 131/85
== END 2024-08-04 04:23 | disposition left against medical advice (07) ==
LOC: ED 20:35
PROVIDERS: Emergency Medicine
DX: K56.7 Ileus, unspecified (principal); E87.1 Hypo-osmolality and hyponatremia; E11.65 Type 2 diabetes mellitus with hyperglycemia; E78.5 Hyperlipidemia, unspecified; J45.909 Unspecified asthma, uncomplicated; K21.9 Gastro-esophageal reflux disease without esophagitis; G43.909 Migraine, unspecified, not intractable, without status migrainosus; F17.200 Nicotine dependence, unspecified, uncomplicated; Z53.29 Procedure and treatment not carried out because of patient's decision for other reasons; Z88.5 Allergy status to narcotic agent; Z88.8 Allergy status to other drugs, medicaments and biological substances; Z98.890 Other specified postprocedural states; Z79.899 Other long term (current) drug therapy

== ENCOUNTER 2024-11-07 18:26 | Emergency (ER) | payer OTHER ==
[~2024-11-07] VITALS: Ht 157.4 cm; Wt 77.1 kg
[2024-11-07 18:39] VITALS: BP 110/57
[2024-11-07] MEDS ORDERED: SODIUM CHLORIDE 0.9% 1,000 ML IV ONE (18:45)
[2024-11-07 18:57] LABS: BASO # 0.1 10*3/uL (0.0-0.1); BASO % 0.8 % (0.0-1.0); EOS # 0.2 10*3/uL (0.0-0.4); EOS % 3.3 % (1.0-4.0); HEMATOCRIT 44.3 % (42.0-52.0); MEAN CELL VOLUME 87.2 fl (80.0-94.0); MEAN CORPUSCULAR HGB 30.5 pg (27.0-31.0); MEAN PLATELET VOLUME 9.4 fl (9.6-12.3); MONO # 0.5 10*3/uL (0.1-1.0); MONO % 8.2 % (3.0-9.0); NEUT # 3.6 10*3/uL (2.3-7.9); NEUT % 58.5 % (47.0-73.0); PLATELET COUNT AUTOMATED 225 10*3/uL (130-400); RED BLOOD COUNT 5.08 10*6/uL (4.50-5.90); RED CELL DISTRI WIDTH 12.3 % (0-14.5); WHITE BLOOD COUNT 6.1 10*3/uL (4.8-10.8)
[2024-11-07 19:19] LABS: BUN 7 mg/dl (9-23); CHLORIDE 102 mmol/L (98-107); POTASSIUM 5.1 mmol/L (3.4-5.1); VALPROIC ACID (DEPAKENE) 59.6 ug/ml (50-100)
[2024-11-07 19:26] LABS: CARBAMAZEPINE (TEGRETOL) TOTAL < 0.4 ug/ml (4-12)
[2024-11-07 19:48] LABS: BILIRUBIN Negative (Negative); BLOOD Negative (Negative); CLARITY Clear (Clear); COLOR Yellow (Yellow); GLUCOSE 3+ (Negative); KETONE Negative (Negative); LEUKO ESTERASE Negative (Negative); NITRITE Negative (Negative); SPECIFIC GRAVITY >= 1.030 (1.001-1.030); UROBILINOGEN 0.2 E.U./dl (0.0-1.0)
[2024-11-07 19:55] LABS: URINE AMPHETAMINES Negative (1000ng/ml); URINE BARBITURATES Negative (200ng/ml); URINE BENZODIAZEPINES Negative (200ng/ml); URINE CANNABINOIDS (THC) Positive (50ng/ml); URINE COCAINE Negative (300ng/ml); URINE METHADONE Negative (300ng/ml); URINE OPIATES Negative (300ng/ml); URINE PHENCYCLIDINE Negative (25ng/ml)
[2024-11-07] MEDS ORDERED: INSULIN REGULAR, HUMAN 1 UNIT/0.01 ML IV ONE (20:20)
== END 2024-11-07 22:40 | disposition home or self-care (01) ==
LOC: ED 18:26
PROVIDERS: Emergency Medicine
DX: R56.9 Unspecified convulsions (principal); E11.9 Type 2 diabetes mellitus without complications; J45.909 Unspecified asthma, uncomplicated; K21.9 Gastro-esophageal reflux disease without esophagitis; G43.909 Migraine, unspecified, not intractable, without status migrainosus; Z87.442 Personal history of urinary calculi; F17.200 Nicotine dependence, unspecified, uncomplicated; Z88.5 Allergy status to narcotic agent; Z91.048 Other nonmedicinal substance allergy status; Z98.890 Other specified postprocedural states